=== PATIENT | female | born 1995 | race Caucasian/White ===

== ENCOUNTER 2016-12-30 10:05 | Outpatient (CLI) | payer OTHER, MEDICAID ==
[~2016-12-30 10:05] MED LIST: DICLEGIS DR 101 EACH PO; DIFLUCAN DPS100 MG PO; LEVAQUIN DPS500 MG PO; REGLAN-DPS10 MG PO; TYLENOL DPS325 MG PO; ZOFRAN4 MG PO
[2017-03-11] MEDS ORDERED: PROZAC DPS20 MG PO (13:37)
[2017-03-11] MEDS ORDERED: VISTARIL-DPS25 MG PO (13:37)
[2017-03-11] MEDS ORDERED: MICRONASE DPS5 MG PO (13:38)
[2017-03-11] MEDS ORDERED: ZOFRAN4 MG PO (13:38)
[2017-03-11] MEDS ORDERED: COLACE-DPS100 MG PO (13:38)
[2017-03-11] MEDS ORDERED: PROTONIX40 MG PO (13:38)
[2017-03-11] MEDS ORDERED: PRENATAL VITAM1 EAC6 PO (13:38)
[2017-03-11] MEDS ORDERED: MILK OF MAGNESI10 ML PO (13:39)
[2017-03-11] MEDS ORDERED: PERCOCET 5-3251 EACH PO (13:40)
[2017-03-11] MEDS ORDERED: MIRALAX PACKET17 GM PO (13:40)
[2017-03-11] MEDS ORDERED: MOTRIN-DPS800 MG PO (13:40)
[2017-03-11] MEDS ORDERED: NIPPLECREAM TP (13:41)
== END 2016-12-30 12:05 | disposition home or self-care (01) ==
DX: O99.89 Other specified diseases and conditions complicating pregnancy, childbirth and the puerperium (principal); R10.9 Unspecified abdominal pain; Z3A.29 29 weeks gestation of pregnancy

== ENCOUNTER 2017-01-20 01:50 | Outpatient (CLI) | payer OTHER, MEDICAID ==
[2017-03-11] MEDS ORDERED: PROZAC DPS20 MG PO (13:37)
[2017-03-11] MEDS ORDERED: VISTARIL-DPS25 MG PO (13:37)
[2017-03-11] MEDS ORDERED: MICRONASE DPS5 MG PO (13:38)
[2017-03-11] MEDS ORDERED: COLACE-DPS100 MG PO (13:38)
[2017-03-11] MEDS ORDERED: ZOFRAN4 MG PO (13:38)
[2017-03-11] MEDS ORDERED: PROTONIX40 MG PO (13:38)
[2017-03-11] MEDS ORDERED: PRENATAL VITAM1 EAC6 PO (13:38)
[2017-03-11] MEDS ORDERED: MILK OF MAGNESI10 ML PO (13:39)
[2017-03-11] MEDS ORDERED: MOTRIN-DPS800 MG PO (13:40)
[2017-03-11] MEDS ORDERED: MIRALAX PACKET17 GM PO (13:40)
[2017-03-11] MEDS ORDERED: PERCOCET 5-3251 EACH PO (13:40)
[2017-03-11] MEDS ORDERED: NIPPLECREAM TP (13:41)
== END 2017-01-20 03:00 | disposition home or self-care (01) ==
LOC: 2LDRP 01:50 → BC 01:50
DX: O36.8130 Decreased fetal movements, third trimester, not applicable or unspecified (principal); Z3A.32 32 weeks gestation of pregnancy

== ENCOUNTER 2017-01-24 22:32 | Outpatient (CLI) | payer OTHER, MEDICAID ==
[2017-03-11] MEDS ORDERED: VISTARIL-DPS25 MG PO (13:37)
[2017-03-11] MEDS ORDERED: PROZAC DPS20 MG PO (13:37)
[2017-03-11] MEDS ORDERED: ZOFRAN4 MG PO (13:38)
[2017-03-11] MEDS ORDERED: COLACE-DPS100 MG PO (13:38)
[2017-03-11] MEDS ORDERED: PRENATAL VITAM1 EAC6 PO (13:38)
[2017-03-11] MEDS ORDERED: MICRONASE DPS5 MG PO (13:38)
[2017-03-11] MEDS ORDERED: PROTONIX40 MG PO (13:38)
[2017-03-11] MEDS ORDERED: MILK OF MAGNESI10 ML PO (13:39)
[2017-03-11] MEDS ORDERED: PERCOCET 5-3251 EACH PO (13:40)
[2017-03-11] MEDS ORDERED: MOTRIN-DPS800 MG PO (13:40)
[2017-03-11] MEDS ORDERED: MIRALAX PACKET17 GM PO (13:40)
[2017-03-11] MEDS ORDERED: NIPPLECREAM TP (13:41)
== END 2017-01-25 03:00 | disposition home or self-care (01) ==
LOC: 2LDRP 22:32 → BC 22:32
DX: O47.03 False labor before 37 completed weeks of gestation, third trimester (principal); Z3A.33 33 weeks gestation of pregnancy